=== PATIENT | female | born 1960 | race Caucasian/White ===

== ENCOUNTER 2020-02-15 11:51 | Emergency (ER) | payer OTHER, SELFPAY ==
[~2020-02-15] VITALS: Ht 165.1 cm; Wt 53.0 kg
[2020-02-15 12:00] VITALS: BP 133/67
--- NOTE | 2020-02-15 12:21 | NUR ---
PT PROVIDED URINE SAMPLE. UA COLLECTED AND SENT TO LAB.
[2020-02-15 12:30] LABS: MICROSCOPIC NOT IND
--- NOTE | 2020-02-15 12:35 | NUR ---
ALL RESULTS ARE BACK AT THIS TIME. CHART UP FOR RECHECK.
== END 2020-02-15 13:48 | disposition home or self-care (01) ==
LOC: ED 13:00
DX: A60.04 Herpesviral vulvovaginitis (principal); F17.200 Nicotine dependence, unspecified, uncomplicated
CPT/HCPCS: 81003; 99283